=== PATIENT | male | born 1980 | race African-American/Black ===

== ENCOUNTER 2017-04-28 20:16 | Emergency (ER) | payer MEDICAID ==
[2017-04-28 20:39] VITALS: BP 130/75
--- NOTE | 2017-04-28 21:21 | RADIOLOGY REPORT (SQ) ---
EXAM DESCRIPTION: KNEE RIGHT 4 VIEWS COMPLETED DATE/TIME: 04/28/2017 9:11 pm REASON FOR STUDY: fall pain COMPARISON: None. NUMBER OF VIEWS: Four views right knee. LIMITATIONS: None. FINDINGS: Large joint effusion. Vertical fracture line noted in the medial tibial plateau without d epression. Other bones are intact. OTHER: No other significant finding. IMPRESSION: Nondepressed medial tibial plateau fracture. Associated large joint effusion. TECHNICAL DOCUMENTATION: JOB ID: [id number]
--- NOTE | 2017-04-28 21:54 | ER Document Report ---
HPI - HPI Patient complains to provider of: Right knee pain Pain Level: 3 Context: Patient is a 37-year-old male presents emergency department with a chief complaint of medial right knee pain. patient states that he was [place] last [place] on uneven ground and felt something pop in his right knee. He denies any direct trauma or fall. He otherwise admits to pain with bearing weight, ambulation, active range of motion. Otherwise healthy male denies any history of drug use - MUSCULOSKELETAL Musculoskeletal: REPORTS: Extremity pain - Right knee Past Medical History - Social History Smoking Status: Never Smoker Frequency of alcohol use: None Drug Abuse: None Family History: Reviewed & Not Pertinent Patient has suicidal ideation: No Patient has homicidal ideation: No Renal/ Medical History: Denies: Hx Peritoneal Dialysis Vertical Provider Document - CONSTITUTIONAL Agree With Documented VS: Yes Notes: PHYSICAL EXAM GENERAL: Alert, interacts well. HEAD: Normocephalic, atraumatic. LUNGS: Clear to auscultation bilaterally, no wheezes, rales, or rhonchi. No respiratory distress. HEART: Regular rate and rhythm. No murmurs, gallops, or rubs. ABDOMEN: Soft, nondistended, nontender. No guarding, rebound, or rigidity.. Bowel sounds present in all 4 quadrants. EXTREMITIES: Moves all extremities spontaneously except for the right knee. Palpable fluid and tenderness in the medial tibia. No edema, radial and dorsalis pedis pulses 2/4 bilaterally. No cyanosis. NEUROLOGICAL: Alert and oriented x4. Normal speech. PSYCH: Normal affect, normal mood. SKIN: Warm, dry, normal turgor. Superficial abrasions noted all over his body without any active bleeding, redness, drainage - RESPIRATORY O2 Sat by Pulse Oximetry: 98 Course - Re-evaluation Re-evalutation: 04/28/17 21:50 Patient is a 37-year-old male is hemodynamically stable, no acute distress and afebrile. X-ray shows evidence of a nondisplaced medial tibial plateau fracture. Physical exam shows a neurovascularly intact extremity. patient placed in a knee immobilizer and crutches, educated on weightbearing practice and to follow-up with orthopedics on Sunday. Otherwise discussed strict return precautions and stable for discharge home - Vital Signs Vital signs: Temp Pulse Resp BP Pulse Ox 99.0 F 97 18 130/75 H 98 04/28/17 20:38 04/28/17 20:38 04/28/17 20:38 04/28/17 20:38 04/28/17 20:38 - Diagnostic Test Radiology reviewed: Image reviewed, Reports reviewed Procedures - Immobilization Right Knee Pre-Proc Neuro Vasc Exam: Normal Immobilizer type: Knee immobilizer Performed by: RN Post-Proc Neuro Vasc Exam: Unchanged from pre-exam Alignment checked and good: Yes Discharge - Discharge Clinical Impression: Right medial tibial plateau fracture Qualifiers: Encounter type: initial encounter Fracture type: closed Qualified Code(s): S82.131A - Displaced fracture of medial condyle of right tibia, initial encounter for closed fracture Condition: Good Disposition: HOME, SELF-CARE Instructions: Use of Crutches ([facility]), Fractured Tibia ([facility]) Additional Instructions: You did break the top part of your tibia which is the bone that supports the bottom half your knee. He will need to follow-up with an orthopedist/bone specialist regarding this injury for evaluation of possible surgery and other treatment options. Please follow-up with the physician listed on your discharge paperwork. Otherwise for pain you can take [id number] Tylenol as directed on the back of the box. Prescriptions: Oxycodone HCl/Acetaminophen [Percocet 5-325 mg Tablet] 1 - 2 tab PO Q4H PRN #10 tablet PRN Reason: Referrals: NEERAJ LEWIS DO [ACTIVE STAFF] - 04/30/17
== END 2017-04-28 22:09 | disposition home or self-care (01) ==
LOC: ER 20:16
DX: S82.131A Displaced fracture of medial condyle of right tibia, initial encounter for closed fracture (principal); M25.561 Pain in right knee; X50.0XXA Overexertion from strenuous movement or load, initial encounter
CPT/HCPCS: 99283; 73564; L1830